=== PATIENT | male | born 1985 | race Caucasian/White ===

== ENCOUNTER 2016-10-29 06:58 | Emergency (ER) | payer BC ==
[2016-10-29] MEDS ORDERED: ASPIRIN 81 MG CHEWABLE TABLETS PO ONE (07:16)
--- NOTE | 2016-10-29 07:19 | PDOC ---
Attending Attestation - Resident Resident Name: Asad Leyva - ED Attending Attestation I have performed the following: I have examined & evaluated the patient, The case was reviewed & discussed with the resident, I agree w/resident's findings & plan, Exceptions are as noted - HPI HPI: 31 yo M no PMH presents with SOB, chest pressure for past day. No prior history of asthma, lung problems. He notes that it is difficult to take a deep breath. The pain and SOB are not exertional. No recent fevers. He has had intermittent dry cough. No nasal congestion. Initially denied any exposures, however, later stated that he was exposed to sawdust over the weekend. No recent surgery, travel, immobilization, leg swelling. - Physicial Exam PE: GENERAL: Awake, alert, and fully oriented, in no acute distress HEAD: No signs of trauma EYES: PERRLA, EOMI, sclera anicteric, conjunctiva clear ENT: Auricles normal inspection, hearing grossly normal, nares patent, oropharynx clear without exudates. Moist mucosa NECK: Normal ROM, supple, no lymphadenopathy, JVD, or masses LUNGS: Dec air entry B/L, intermittent dry cough. No wheezes. HEART: Regular rate and rhythm, normal S1 and S2, no murmurs, rubs or gallops ABDOMEN: Soft, nontender, normoactive bowel sounds. No guarding, no rebound. No masses EXTREMITIES: Normal range of motion, no edema. No clubbing or cyanosis. No cords, erythema, or tenderness NEUROLOGICAL: Cranial nerves II through XII grossly intact. Normal speech, normal gait SKIN: Warm, Dry, normal turgor, no rashes or lesions noted. - Medical Decision Making Symptoms likely due to exposure to sawdust over the weekend, as his pain is reproducible, his lung sounds are decreased B/L. Will give neb treatment and obtain CXR. Likely DC home.
[2016-10-29 07:37] VITALS: TEMP 97; BMI 31.1
--- NOTE | 2016-10-29 07:39 | PDOC ---
History of Present Illness <Nighat Logan - Last Filed: 10/29/16 10:20> - History of Present Illness Initial Comments: 10/29/16 07:41 Mr. Villafana is a 31 year old male with a significant past medical history of GERD and reflux who presents to the emergency department with 24 hour history of reported chest tightness. He says it first began in the shower and has been more or less constant throughout the day. He experiences pain when he attempts to take a deep breath and cigarette smoke earlier today made it worse (from passerby). The patient denies headache and dizziness. Denies fever, chills, nausea, vomit, diarrhea and constipation. Denies dysuria, frequency, urgency and hematuria. Allergies: NKDA Past surgical history: Denies Social history: Socially drinks 2-3 beer / week PMD - Chana @ [facility], [place] 10/29/16 07:43 <Asad Leyva - Last Filed: 10/29/16 10:31> - General Chief Complaint: Respiratory Stated Complaint: CHEST PRESSURE Time Seen by Provider: 10/29/16 07:06 Past History <Nighat Logan - Last Filed: 10/29/16 10:20> <Asad Leyva - Last Filed: 10/29/16 10:31> - Past Medical History Allergies/Adverse Reactions: Allergies Allergy/AdvReac Type Severity Reaction Status Date / Time No Known Allergies Allergy Verified 10/29/16 07:37 Review of Systems - Review of Systems Comments:: 10/29/16 07:42 GENERAL/CONSTITUTIONAL: No fever or chills. No weakness. HEAD, EYES, EARS, NOSE AND THROAT: No change in vision. No ear pain or discharge. No sore throat. CARDIOVASCULAR: +Reproducable sternal pain and shortness of breath on deep inspiration RESPIRATORY: No cough, wheezing, or hemoptysis. GASTROINTESTINAL: No nausea, vomiting, diarrhea or constipation. GENITOURINARY: No dysuria, frequency, or change in urination. MUSCULOSKELETAL: No joint or muscle swelling or pain. No neck or back pain. SKIN: No rash NEUROLOGIC: No headache, vertigo, loss of consciousness, or change in strength/ sensation. ENDOCRINE: No increased thirst. No abnormal weight change HEMATOLOGIC/LYMPHATIC: No anemia, easy bleeding, or history of blood clots. ALLERGIC/IMMUNOLOGIC: No hives or skin allergy. 10/29/16 07:50 <Asad Leyva - Last Filed: 10/29/16 10:31> *Physical Exam - Vital Signs Last Vital Signs Temp Pulse Resp BP Pulse Ox 97.0 F L 71 16 134/82 100 10/29/16 07:33 10/29/16 07:33 10/29/16 07:33 10/29/16 07:33 10/29/16 07:33 <Nighat Logan - Last Filed: 10/29/16 10:20> - Physical Exam Comments: 10/29/16 07:42 GENERAL: Awake, alert, and fully oriented, in no acute distress HEAD: No signs of trauma, normocephalic, atraumatic EYES: PERRLA, EOMI, sclera anicteric, conjunctiva clear ENT: Auricles normal inspection, hearing grossly normal, nares patent, oropharynx clear without exudates. Moist mucosa NECK: Normal ROM, supple, no lymphadenopathy, JVD, or masses LUNGS: +Bilateral wheezing noted in lung frye, speaks full sentences, in no acute distress HEART: Regular rate and rhythm, normal S1 and S2, no murmurs, rubs or gallops, peripheral pulses normal and equal bilaterally. ABDOMEN: Soft, nontender, normoactive bowel sounds. No guarding, no rebound. No masses EXTREMITIES: Normal inspection, Normal range of motion, no edema. No clubbing or cyanosis. NEUROLOGICAL: Cranial nerves II through XII grossly intact. Normal speech, normal gait, no focal sensorimotor deficits SKIN: Warm, Dry, normal turgor, no rashes or lesions noted. 10/29/16 07:51 <Asad Leyva - Last Filed: 10/29/16 10:31> Heart Score/ECG Review - ECG Impressions Comment:: 10/29/16 07:53 Normal interval, normal rate, normal access, normal rhythm. Normal EKG. <Asad Leyva - Last Filed: 10/29/16 10:31> ED Treatment Course - LABORATORY CBC & Chemistry Diagram: 10/29/16 09:16 10/29/16 09:16 - ADDITIONAL ORDERS Additional order review: Laboratory Results 10/29/16 10/29/16 09:16 09:16 INR 0.98 Sodium 142 Potassium 4.4 Chloride 107 Carbon Dioxide 28 Anion Gap 7 L BUN 13 Creatinine 0.9 Creat Clearance w eGFR > 60 Random Glucose 105 Calcium 8.4 L Magnesium 2.1 Total Bilirubin 0.4 AST 24 ALT 33 Alkaline Phosphatase 76 Creatine Kinase 185 Troponin I < 0.02 Total Protein 6.7 Albumin 3.9 10/29/16 09:16 RBC 4.77 MCV 89.9 MCHC 34.6 RDW 13.0 MPV 8.6 Neutrophils % 59.9 Lymphocytes % 27.4 Monocytes % 10.8 H Eosinophils % 0.7 Basophils % 1.2 - Medications Given in the ED: ED Medications Discontinued Medications Generic Name Dose Route Start Last Admin Trade Name Freq PRN Reason Stop Dose Admin Albuterol/Ipratropium 1 amp 10/29/16 08:05 10/29/16 09:03 Duoneb - NEB 10/29/16 08:06 1 amp ONCE ONE Administration Aspirin 162 mg 10/29/16 07:16 10/29/16 09:05 Asa - PO 10/29/16 07:17 Not Given ONCE ONE <Nighat Logan - Last Filed: 10/29/16 10:20> - LABORATORY CBC & Chemistry Diagram: 10/29/16 09:16 10/29/16 09:16 <Asad Leyva - Last Filed: 10/29/16 10:31> Medical Decision Making - Medical Decision Making 10/29/16 07:55 Pt. reported 24 hours of difficulty breathing. Pain is reproducible and related to inspiration. Suspect respiratory cause. Pleuritic pain vs. asthma vs. irritation from foreign substance. X-ray ordered since first instance of respiratory problems. Duoneb ordered. 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 Suspect cause of respiratory pain. Will discharge to home care if chest x-ray normal and respiratory status improves w/ duoneb. Chest x-ray normal, D/C to home with proper instructions for mask use while sanding. 10/29/16 10:31 <Asad Leyva - Last Filed: 10/29/16 10:31> *DC/Admit/Observation/Transfer - Discharge Dispostion Admit: No <Nighat Logan - Last Filed: 10/29/16 10:20> - Attestations Physician Attestion: 10/29/16 07:53 I, Dr. Asad Leyva, attest that this document has been prepared under my direction and personally reviewed by me in its entirety. I further attest, that it accurately reflects all work, treatment, procedures and medical decision -making performed by me. <Asad Leyva - Last Filed: 10/29/16 10:31> Diagnosis at time of Disposition: Reactive airway disease Qualifiers: Asthma severity: unspecified severity Asthma complication type: uncomplicated Qualified Code(s): J45.909 - Unspecified asthma, uncomplicated - Discharge Dispostion Disposition: HOME Condition at time of disposition: Stable - Referrals Referrals: Brian George [Primary Care Provider] - - Patient Instructions Printed Discharge Instructions: DI for Reactive Airway Disease-Adult Additional Instructions: Please return as needed for further respiratory pain. 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 Thank you for letting us treat you today.
[2016-10-29] MEDS ORDERED: ALBUTEROL SO4 2.5/IPRATROPIUM 0.5 INH SOL 3 ML VIAL.NEB. NEB ONE (08:05)
[2016-10-29 09:24] LABS: BASOPHIL 1.2 % (0-2.0); EOSINOPHIL 0.7 % (0-4.5); MCH 31.1 pg (25.7-33.7); MCHC 34.6 g/dl (32.0-35.9); MEAN CELL VOLUME 89.9 fl (80-96); MEAN PLT VOLUME 8.6 fl (7.5-11.1); NEUTROPHILS 59.9 % (42.8-82.8); PLATELET COUNT 147 K/MM3 (134-434); WHITE BLOOD COUNT 4.8 K/mm3 (4.0-10.0)
[2016-10-29 09:53] LABS: ALBUMIN 3.9 g/dl (3.4-5.0); ANION GAP 7 (8-16); BILIRUBIN,TOTAL 0.4 mg/dL (0.2-1.0); CALCIUM 8.4 mg/dL (8.5-10.1); CO2 28 mmol/L (21-32); CREATININE 0.9 mg/dL (0.7-1.3); GLUCOSE,RANDOM 105 mg/dL (74-106); MAGNESIUM 2.1 mg/dL (1.8-2.4); SGOT/AST 24 U/L (15-37); SGPT/ALT 33 U/L (12-78)
[2016-10-29 09:56] LABS: ALK PHOS 76 U/L (45-117); TOT PROT 6.7 g/dl (6.4-8.2); TROPONIN I < 0.02 ng/ml (0.00-0.05)
[2016-10-29 10:07] LABS: INR 0.98 (0.82-1.09); PROTHROMBIN TIME (PATIENT) 10.8 SEC (9.98-11.88)
[2016-10-29 19:31] VITALS: BP 121/80; PULSE 90
--- NOTE | 2016-10-31 13:03 | EKG ---
Test Reason : Blood Pressure : / mmHG Vent. Rate : 078 BPM Atrial Rate : 078 BPM P-R Int : 168 ms QRS Dur : 090 ms QT Int : 360 ms P-R-T Axes : 033 066 -01 degrees QTc Int : 410 ms NORMAL SINUS RHYTHM ABNORMAL QRS-T ANGLE, CONSIDER PRIMARY T WAVE ABNORMALITY ABNORMAL ECG NO PREVIOUS ECGS AVAILABLE Confirmed by EVELINE MCKNIGHT MD ([id number]) on 10/31/2016 1:02:40 PM Referred By: Confirmed By:EVELINE MCKNIGHT MD
== END 2016-10-29 11:44 | disposition home or self-care (01) ==
LOC: JER 06:58
PROC: 3E0F7GC Introduction of Other Therapeutic Substance into Respiratory Tract, Via Natural or Artificial Opening (ICD-10-PCS; principal; 2016-10-29)
DX: J45.909 Unspecified asthma, uncomplicated (principal)
CPT/HCPCS: 36415; 71020-TC; 80053; 82550; 82553; 83735; 84484; 85025; 85610; 93005; 93010; 99282-25

== ENCOUNTER 2022-08-30 10:50 | Emergency (ER) | payer SELFPAY ==
[2022-08-30 10:54] VITALS: BP 115/79; PULSE 73; RESP 16; TEMP 98.5; BMI 31.8
== END 2022-08-30 11:34 | disposition home or self-care (01) ==
LOC: JERFT 10:50
DX: H66.92 Otitis media, unspecified, left ear (principal)
CPT/HCPCS: 99282-25